=== PATIENT | female | born 1995 | race American Indian/Alaskan Native ===

== ENCOUNTER 2019-04-20 13:27 | Emergency (ER) | payer OTHER ==
--- NOTE | 2019-04-20 13:35 | Event Note ---
ED Screening Note ED Screening Note: WAS AT [facility] SENT OUTPT- NO HELP NO SI WANTS TO HURT SOMEONE ELSE, HER COUNSELOR OFF MEDS FOR YEAR BIPOLAR DEPRESSION SHE STATES CAN NOT CONTROL HERSELF PMH ASTHMA RX NONE PSH R FOOT LMP 4 W AGO CRYING AND TEARFUL This initial assessment/diagnostic orders/clinical plan/treatment(s) is/are sub ject to change based on patients health status, clinical progression and re- assessment by fellow clinical providers in the ED. Further treatment and workup at subsequent clinical providers discretion. Patient/guardian urged not to elope from the ED as their condition may be serious if not clinically assessed and managed. Initial orders include: MHE
[2019-04-20 13:37] VITALS: BP 111/82
[2019-04-20 14:23] LABS: Basophils # (Auto) 0.2 K/mm3 (0.0-0.1); Basophils % (Auto) 2.1 % (0.0-1.8); Eosinophils # (Auto) 0.2 K/mm3 (0.0-0.4); Eosinophils % (Auto) 2.3 % (0.0-4.3); Hemoglobin 13.4 gm/dl (10.1-14.3); Lymphocytes # (Auto) 2.6 K/mm3 (1.2-5.4); Mean Corpuscular HGB Conc 33 % (30-34); Mean Corpuscular Volume 83 fl (79-97); Monocytes # (Auto) 0.5 K/mm3 (0.0-0.8); Monocytes % (Auto) 4.9 % (0.0-7.3); Platelet Count 211 K/mm3 (140-440); Red Blood Count 4.94 M/mm3 (3.65-5.03); Red Cell Distribution Width 14.1 % (13.2-15.2)
[2019-04-20 14:42] LABS: BUN/Creatinine Ratio 11; Blood Urea Nitrogen 8 mg/dL (7-17); Hemolysis Index 2
[2019-04-20 15:17] LABS: Bacteria,Urine 1+ /HPF (Negative); Bilirubin,Urine NEG (Negative); Blood,Urine NEG (Negative); Color,Urine Yellow (Yellow); Mucus,Urine 3+ /HPF; Protein,Urine <15 mg/dL mg/dL (Negative); Urobilinogen,Urine < 2.0 mg/dL (<2.0)
[2019-04-20 15:25] LABS: Amphetamine Screen,Urine PRESUMPTIVE NEGATIVE; Benzodiazepines Screen,Urine PRESUMPTIVE NEGATIVE; Cocaine Screen,Urine PRESUMPTIVE NEGATIVE; Methadone Screen,Urine PRESUMPTIVE NEGATIVE; Opiate Screen,Urine PRESUMPTIVE NEGATIVE
[2019-04-20 15:44] LABS: Cannabinoid Screen,Urine PRESUMPTIVE POSITIVE
[2019-04-20] MEDS ORDERED: ATIVAN PO ONE (17:50)
--- NOTE | 2019-04-20 18:54 | Emergency Department Report ---
ED Psych HPI - General Chief Complaint: Psych Stated Complaint: MENTAL BREAKDOWN Time Seen by Provider: 04/20/19 13:33 Source: patient Mode of arrival: Ambulatory - History of Present Illness Initial Comments: 24-year-old -[place] female presents to the ED with history of bipolar, anxiety, depression, wanting a referral for psychiatric treatment. She states she went today removed, but was not recommended inpatient treatment. She wanted to be reevaluated and referred out. SI, no HI, no psychosis, no chills or night sweats. - Related Data Allergies Allergy/AdvReac Type Severity Reaction Status Date / Time amoxicillin Allergy Hives Verified 08/13/14 00:58 ED Review of Systems ROS: Stated complaint: MENTAL BREAKDOWN Other details as noted in HPI Comment: All other systems reviewed and negative Respiratory: denies: cough Cardiovascular: denies: chest pain Gastrointestinal: denies: abdominal pain Psychiatric: anxiety, depression. denies: suicidal thoughts ED Past Medical Hx - Past Medical History Hx Psychiatric Treatment: Yes (bipolar) Hx Asthma: Yes - Surgical History Additional Surgical History: right foot 2007 - Social History Smoking Status: Never Smoker Substance Use Type: Marijuana ED Physical Exam - General Limitations: No Limitations General appearance: alert, in no apparent distress - Head Head exam: Present: atraumatic, normocephalic - Eye Eye exam: Present: normal appearance, PERRL, EOMI Pupils: Present: normal accommodation - ENT ENT exam: Present: normal exam, normal orophraynx - Neck Neck exam: Present: normal inspection - Respiratory Respiratory exam: Present: normal lung sounds bilaterally - GI/Abdominal GI/Abdominal exam: Present: soft, normal bowel sounds - Extremities Exam Extremities exam: Present: normal inspection - Back Exam Back exam: Present: normal inspection - Neurological Exam Neurological exam: Present: alert, oriented X3, CN II-XII intact ED Course Vital Signs 04/20/19 13:36 Temperature 98.3 F Pulse Rate 78 Respiratory 18 Rate Blood Pressure 111/82 O2 Sat by Pulse 95 Oximetry ED Medical Decision Making - Lab Data Result diagrams: 04/20/19 13:56 04/20/19 13:56 Critical care attestation.: If time is entered above; I have spent that time in minutes in the direct care of this critically ill patient, excluding procedure time. ED Disposition Clinical Impression: Anxiety and depression Disposition: DC-01 TO HOME OR SELFCARE Is pt being admited?: No Does the pt Need Aspirin: No Condition: Stable Instructions: Generalized Anxiety Disorder (ED) Referrals: PRIMARY CARE, [Primary Care Provider] - 3-5 Days Forms: Work/School Release Form(ED)
== END 2019-04-20 18:54 | disposition home or self-care (01) ==
LOC: ED 13:27
DX: F31.9 Bipolar disorder, unspecified (principal); F41.9 Anxiety disorder, unspecified; J45.909 Unspecified asthma, uncomplicated; F12.10 Cannabis abuse, uncomplicated; Z88.1 Allergy status to other antibiotic agents
CPT/HCPCS: 36415; 80048; 80307; 80320; 81001; 85025; G0480